=== PATIENT | male | born 1975 | race Caucasian/White ===

== ENCOUNTER 2018-08-16 16:41 | Emergency (ER) | payer SELFPAY ==
[~2018-08-16] VITALS: Ht 177.8 cm; Wt 88.6 kg
[2018-08-16 16:57] VITALS: Ht 177.8 cm; Wt 88.6 kg
[2018-08-16] MEDS ORDERED: VOLTAREN75 MG PO (17:32)
[2018-08-16] MEDS ORDERED: AMOXICILLIN500 M1 PO (17:32)
[2018-08-16 18:12] VITALS: BP 121/63
== END 2018-08-16 18:14 | disposition home or self-care (01) ==
LOC: D.ER 16:41
DX: K04.7 Periapical abscess without sinus (principal); K08.89 Other specified disorders of teeth and supporting structures; F17.200 Nicotine dependence, unspecified, uncomplicated